=== PATIENT | female | born 1975 | race Caucasian/White ===

== ENCOUNTER 2024-07-02 17:42 | Emergency (ER) | payer OTHER, MEDICAID ==
[~2024-07-02] VITALS: Ht 157.5 cm; Wt 81.7 kg
[2024-07-02 18:32] LABS: KETONE, URINE AUTO RFX NEGATIVE (NEGATIVE); LEUKOCYTE ESTERASE UR AUTO RFX NEGATIVE (NEGATIVE); NITRITE, URINE AUTO RFX NEGATIVE (NEGATIVE); RBC, URINE AUTO RFX 0 /HPF (0-3); SQUAM EPITHELIAL CELL UR AURFX 1 /HPF (0-6); WBC, URINE AUTO RFX 0 /HPF (0-3)
[2024-07-02] MEDS: predniSONE 20 MG TAB PO ONE (23:37)
[2024-07-02] MEDS: IPRATROPIUM 0.5MG/ALBUTEROL 2.5MG INH SOL UD 3ML NEB PRN (23:56)
[2024-07-03] MEDS ORDERED: IPRA0.00 NEB (00:50)
[2024-07-03] MEDS ORDERED: PRED20TA PO (00:51)
[2024-07-03 01:00] VITALS: BP 130/59; TEMP 98; O2SAT 97
== END 2024-07-03 01:22 | disposition home or self-care (01) ==
LOC: M ED 17:42
DX: J44.1 Chronic obstructive pulmonary disease with (acute) exacerbation (principal); E11.9 Type 2 diabetes mellitus without complications; F17.200 Nicotine dependence, unspecified, uncomplicated; Z88.0 Allergy status to penicillin; Z88.2 Allergy status to sulfonamides; Z91.018 Allergy to other foods
CPT/HCPCS: 71045; 81001; 87486; 87581; 87633; 87798; 94640; 99283; J7512

== ENCOUNTER 2024-11-11 08:55 | Day surgery (SDC) | payer OTHER, MEDICAID ==
[~2024-11-11] VITALS: Ht 160 cm; Wt 72.4 kg
[~2024-11-11 08:55] MED LIST: ALBU8.5H INH; ARIP1TAB6 PO; ATOR1TAB19 PO; AZEL1SPR3 NARES; BUSP5TA PO; CYCL-707 PO; DULO1CAP6 PO; ECOT81TA5 PO; FLUO-365 PO; FLUT1BLS5 INH; GABA-1635 PO; GLIP-318 PO; HYDR-3363 PO; IMIT50TA PO; IPRA0.00 NEB; LEVOTAB10 PO; MONT10TA97 PO; OXYC10TA12 PO; OXYC20TA40 PO; PANT40TA29 PO; PRED20TA PO; SEMA0.257 SC
[2024-11-11] MEDS: LR 1,000 ML IV SCH (09:45)
[2024-11-11] MEDS: ALBUTEROL SULFATE 2.5 MG/0.5 ML INH CONCENTRATE NEB SOLN NEB ONE (09:45)
[2024-11-11] MEDS: ceFAZolin SOD 2 GM IV ONCE IV ONE (10:46)
[2024-11-11] MEDS: LIDOCAINE 1% MDV 20 ML VIAL As Ordered ONE (10:49)
[2024-11-11] MEDS ORDERED: ONDANSETRON 4MG 2ML VIAL As Ordered ONE (11:31)
[2024-11-11] MEDS ORDERED: ACETAMINOPHEN 1000MG/100ML IV BAG As Ordered ONE (11:31)
[2024-11-11] MEDS ORDERED: LR 1,000 ML IV SCH (11:40)
[2024-11-11] MEDS ORDERED: HYDROMORPHONE HCL 0.5 MG/0.5 ML SYRINGE IV PRN (11:40)
[2024-11-11 12:44] VITALS: BP 122/59; TEMP 97; O2SAT 94
== END 2024-11-11 13:20 | disposition home or self-care (01) ==
LOC: M SDC 08:55
PROVIDERS: ATTEND Podiatrist Foot & Ankle Surgery
DX: M20.11 Hallux valgus (acquired), right foot (principal); M21.611 Bunion of right foot; E11.9 Type 2 diabetes mellitus without complications; E78.00 Pure hypercholesterolemia, unspecified; K21.9 Gastro-esophageal reflux disease without esophagitis; J44.89 Other specified chronic obstructive pulmonary disease; Z79.899 Other long term (current) drug therapy; Z79.82 Long term (current) use of aspirin; Z88.0 Allergy status to penicillin; Z88.2 Allergy status to sulfonamides; Z91.048 Other nonmedicinal substance allergy status; Z91.040 Latex allergy status; Z91.018 Allergy to other foods; F17.210 Nicotine dependence, cigarettes, uncomplicated
CPT/HCPCS: 28297; 76000; 88300; C1713; J0131; J0665; J0690; J2405; J3010

== ENCOUNTER 2024-11-14 19:13 | Inpatient (IN) | payer OTHER, MEDICAID ==
[~2024-11-14] VITALS: Ht 160 cm; Wt 74.3 kg
[2024-11-14] MEDS ORDERED: VANCOMYCIN HCL 1,000 MG, VIAL MATE ADAPTER 1 EACH in NS 250 ML IV SCH (21:05)
[2024-11-14] MEDS: MORPHINE 10 MG/ML 1 ML VIAL IV ONE (21:33)
[2024-11-14] MEDS: NS (Normal Saline) 0.9% 1,000 ML IV ONE (21:34)
[2024-11-14 21:43] LABS: BASO # 0.0 10^3/uL (0.0-0.2); BASO % 0.2 % (0.0-1.0); EOS # 0.0 10^3/uL (0.0-0.5); EOS % 0.0 % (0.0-3.0); LYMPH # 1.6 10^3/uL (1.5-5.0); LYMPH % 18.7 % (24.0-44.0); MONO # 0.8 10^3/uL (0.0-0.8); MONO % 8.7 % (2.0-8.0); NEUTROPHILS # 6.2 10^3/uL (1.5-8.5); NEUTROPHILS % 71.8 % (36.0-66.0); PLATELET COUNT, AUTOMATED 333 10^3/uL (150-450)
[2024-11-14 21:55] LABS: INR 0.87
[2024-11-14 22:16] LABS: ALT/SGPT 18 U/L (7.0-40); AST/SGOT 19 U/L (<34); CALCIUM LEVEL 9.1 MG/DL (8.5-10.1); CARBON DIOXIDE LEVEL 28 MMOL/L (20-31); CHLORIDE LEVEL 108 MMOL/L (98-107); CREATININE FOR GFR 0.56 MG/DL (0.55-1.30); GLOMERULAR FILTRATION RATE > 90.0 (>51); POTASSIUM SERUM 4.0 MMOL/L (3.5-5.1); SODIUM LEVEL 144 MMOL/L (136-145)
[2024-11-14 22:21] LABS: CPK CREATINE PHOSPHOKINASE 212 U/L (34-145)
[2024-11-14] MEDS: CLINDAMYCIN 600 MG in IV 1 EA IV ONE (22:37)
[2024-11-14] MEDS ORDERED: ISOVUE-370 76% 100 ML VIAL As Ordered ONE (22:46)
[2024-11-15] MEDS: VANCOMYCIN HCL 2,000 MG, VIAL MATE ADAPTER 1 EACH in NS 500 ML IV ONE (00:28)
[2024-11-15 02:49] LABS: C REACTIVE PROTEIN QUANTITATIV 8.00 MG/DL (<1.0); ERYTHROCYTE SEDIMENTATION RATE 68 mm/hr (0-30)
[2024-11-15] MEDS ORDERED: GLUCOSE 4 GM CHEW PO PRN (04:25)
[2024-11-15] MEDS ORDERED: DEXTROSE 50% 50 ML SYRINGE IV PRN (04:25)
[2024-11-15] MEDS ORDERED: GLUCAGON INJ 1 MG VIAL SC PRN (04:25)
[2024-11-15] MEDS ORDERED: SENNA 8.6 MG TAB PO PRN (04:25)
[2024-11-15 04:45] VITALS: BP 127/78; TEMP 97.7; O2SAT 97
[2024-11-15] MEDS ORDERED: BUDE0.5S6 INH (04:45)
[2024-11-15] MEDS ORDERED: LIDO5CRE6 TOP (04:45)
[2024-11-15] MEDS ORDERED: OXYC1TAB23 PO (04:45)
[2024-11-15] MEDS ORDERED: FAMO40TA3 PO (04:45)
[2024-11-15] MEDS ORDERED: MYRB50TA PO (04:45)
[2024-11-15] MEDS ORDERED: CROM4SOL4 OU (04:45)
[2024-11-15 04:48] LABS: ESTIMATED AVERAGE GLUCOSE 128.0 MG/DL (60-110)
[2024-11-15] MEDS ORDERED: HOME MED LIST COMPLETE! XX SCH (04:50)
[2024-11-15] MEDS: cefTRIAXone SOD 1 GM in DEXTROSE 5% (D5W) ADV/MINI-BAG 50 ML IV SCH (06:20)
[2024-11-15] MEDS: INSULIN LISPRO (NovoLOG) PER UNIT SC SCH ×2 (07:30→20:21)
[2024-11-15 08:17] LABS: BASO # 0.0 10^3/uL (0.0-0.2); BASO % 0.2 % (0.0-1.0); EOS # 0.0 10^3/uL (0.0-0.5); EOS % 0.0 % (0.0-3.0); LYMPH # 1.3 10^3/uL (1.5-5.0); LYMPH % 14.7 % (24.0-44.0); MONO # 0.7 10^3/uL (0.0-0.8); MONO % 8.0 % (2.0-8.0); NEUTROPHILS # 6.9 10^3/uL (1.5-8.5); NEUTROPHILS % 76.8 % (36.0-66.0); PLATELET COUNT, AUTOMATED 355 10^3/uL (150-450)
[2024-11-15 08:24] LABS: ERYTHROCYTE SEDIMENTATION RATE 68 mm/hr (0-30)
[2024-11-15 08:45] LABS: C REACTIVE PROTEIN QUANTITATIV 6.12 MG/DL (<1.0); CALCIUM LEVEL 9.2 MG/DL (8.5-10.1); CARBON DIOXIDE LEVEL 29 MMOL/L (20-31); CHLORIDE LEVEL 109 MMOL/L (98-107); CREATININE FOR GFR 0.60 MG/DL (0.55-1.30); GLOMERULAR FILTRATION RATE > 90.0 (>51); POTASSIUM SERUM 4.4 MMOL/L (3.5-5.1); SODIUM LEVEL 146 MMOL/L (136-145)
[2024-11-15] MEDS: busPIRone 5 MG TAB PO SCH (10:11)
[2024-11-15] MEDS: PANTOPRAZOLE 40MG TAB PO SCH (10:11)
[2024-11-15] MEDS: ASPIRIN 81 MG ENTERIC TABLET PO SCH (10:11)
[2024-11-15] MEDS: FAMOTIDINE 20 MG TAB PO SCH (10:12)
[2024-11-15] MEDS: GABAPENTIN 400 MG CAP PO SCH (10:12)
[2024-11-15] MEDS: FLUoxetine 20 MG CAP PO SCH (10:12)
[2024-11-15] MEDS: VANCOMYCIN HCL 1,000 MG, VIAL MATE ADAPTER 1 EACH in NS 250 ML IV SCH (10:12)
[2024-11-15] MEDS: PERCOCET 5MG/325MG TAB PO PRN (10:20)
[2024-11-15 14:00] VITALS: BP 140/89; TEMP 97.3; O2SAT 96
[2024-11-15] MEDS: IPRATROPIUM 0.5 MG/ALBUTEROL 2.5 MG INH SOL UD 3 ML NEB PRN (16:51)
[2024-11-15] MEDS ORDERED: CEPACOL LOZENGE PO PRN (17:30)
[2024-11-15] MEDS: ADVAIR HFA 230/21 MCG INHALER INH SCH (19:13)
[2024-11-15] MEDS: BUDESONIDE 0.5 MG/2 ML INHALATION SUSPENSION INH SCH (19:13)
[2024-11-15 19:52] VITALS: BP 126/73; TEMP 97.5; O2SAT 96
[2024-11-15] MEDS: NICOTINE 21 MG/24 HR 1 EA TRANSDERMAL TD SCH (20:30)
[2024-11-15] MEDS: CYCLOBENZAPRINE 10 MG TABLET PO SCH (20:32)
[2024-11-15] MEDS: MONTELUKAST 10 MG TAB PO SCH (20:32)
[2024-11-16] MEDS: PERCOCET 5MG/325MG TAB PO PRN (01:12)
[2024-11-16 06:00] VITALS: BP 129/75; TEMP 97.5; O2SAT 99
[2024-11-16 07:20] LABS: BASO # 0.0 10^3/uL (0.0-0.2); BASO % 0.3 % (0.0-1.0); EOS # 0.0 10^3/uL (0.0-0.5); EOS % 0.0 % (0.0-3.0); LYMPH # 1.7 10^3/uL (1.5-5.0); LYMPH % 26.0 % (24.0-44.0); MONO # 0.6 10^3/uL (0.0-0.8); MONO % 10.1 % (2.0-8.0); NEUTROPHILS # 4.0 10^3/uL (1.5-8.5); NEUTROPHILS % 63.3 % (36.0-66.0); PLATELET COUNT, AUTOMATED 317 10^3/uL (150-450)
[2024-11-16 08:08] LABS: CALCIUM LEVEL 8.9 MG/DL (8.5-10.1); CARBON DIOXIDE LEVEL 27 MMOL/L (20-31); CHLORIDE LEVEL 111 MMOL/L (98-107); CREATININE FOR GFR 0.61 MG/DL (0.55-1.30); GLOMERULAR FILTRATION RATE > 90.0 (>51); POTASSIUM SERUM 3.4 MMOL/L (3.5-5.1); SODIUM LEVEL 145 MMOL/L (136-145)
[2024-11-16 14:00] VITALS: BP 121/81; TEMP 97.5; O2SAT 98
[2024-11-16 20:00] VITALS: BP 130/81; TEMP 97.7; O2SAT 96
[2024-11-17 04:00] VITALS: BP 128/82; TEMP 97.7; O2SAT 96
[2024-11-17 07:29] LABS: BASO # 0.0 10^3/uL (0.0-0.2); BASO % 0.5 % (0.0-1.0); EOS # 0.0 10^3/uL (0.0-0.5); EOS % 0.0 % (0.0-3.0); LYMPH # 1.9 10^3/uL (1.5-5.0); LYMPH % 29.5 % (24.0-44.0); MONO # 0.6 10^3/uL (0.0-0.8); MONO % 8.9 % (2.0-8.0); NEUTROPHILS # 4.0 10^3/uL (1.5-8.5); NEUTROPHILS % 60.8 % (36.0-66.0); PLATELET COUNT, AUTOMATED 373 10^3/uL (150-450)
[2024-11-17 07:51] LABS: CALCIUM LEVEL 8.7 MG/DL (8.5-10.1); CARBON DIOXIDE LEVEL 25 MMOL/L (20-31); CHLORIDE LEVEL 112 MMOL/L (98-107); CREATININE FOR GFR 0.61 MG/DL (0.55-1.30); GLOMERULAR FILTRATION RATE > 90.0 (>51); POTASSIUM SERUM 3.6 MMOL/L (3.5-5.1); SODIUM LEVEL 147 MMOL/L (136-145)
[2024-11-17 08:55] LABS: C REACTIVE PROTEIN QUANTITATIV 1.37 MG/DL (<1.0)
[2024-11-17] MEDS ORDERED: CEPH500C PO (10:37)
[2024-11-17 12:10] VITALS: BP 128/82; TEMP 97.7
== END 2024-11-17 12:19 | disposition home or self-care (01) | DRG 920 ==
LOC: M ED 19:13 → M ED INP 11-15 02:34 → M MS5PR 11-15 04:35
PROVIDERS: ADMIT Student in an Organized Health Care Education/Training Program; ATTEND Family Medicine
DX: M96.89 Other intraoperative and postprocedural complications and disorders of the musculoskeletal system (principal); L03.115 Cellulitis of right lower limb; E11.40 Type 2 diabetes mellitus with diabetic neuropathy, unspecified; J45.909 Unspecified asthma, uncomplicated; F41.9 Anxiety disorder, unspecified; F32.A Depression, unspecified; K21.9 Gastro-esophageal reflux disease without esophagitis; E78.5 Hyperlipidemia, unspecified; G89.29 Other chronic pain; Z79.82 Long term (current) use of aspirin; Z79.891 Long term (current) use of opiate analgesic; Z79.52 Long term (current) use of systemic steroids; Z79.899 Other long term (current) drug therapy; Z88.0 Allergy status to penicillin; Z88.2 Allergy status to sulfonamides; Z91.018 Allergy to other foods; Z91.040 Latex allergy status; Z91.048 Other nonmedicinal substance allergy status

== ENCOUNTER 2024-11-26 14:48 | Day surgery (SDC) | payer OTHER, MEDICAID ==
[~2024-11-26] VITALS: Ht 160 cm; Wt 74.4 kg
[~2024-11-26 14:48] MED LIST changes: +BUDE0.5S6 INH; +CEPH500C PO; +CROM4SOL4 OU; +FAMO40TA3 PO; +LIDO5CRE6 TOP; +MYRB50TA PO; +OXYC1TAB23 PO
[2024-11-26] MEDS ORDERED: ONDANSETRON 4MG 2ML VIAL As Ordered ONE (15:33)
[2024-11-26] MEDS ORDERED: MIDAZOLAM INJ 2 MG/2 ML VIAL As Ordered ONE (15:33)
[2024-11-26] MEDS ORDERED: ACETAMINOPHEN 1000MG/100ML IV BAG As Ordered ONE (15:34)
[2024-11-26] MEDS ORDERED: LIDOCAINE 2% 100 MG/5 ML SDV (FOR ANES.) As Ordered ONE (15:34)
[2024-11-26] MEDS ORDERED: KETOROLAC 30 MG/ML 1 ML VIAL As Ordered ONE (15:58)
[2024-11-26] MEDS ORDERED: ROCURONIUM BROMIDE 50MG/5ML VIAL As Ordered ONE (15:58)
[2024-11-26] MEDS ORDERED: dexAMETHasone 4 MG/ML 1 ML VIAL As Ordered ONE (15:58)
[2024-11-26] MEDS: LIDOCAINE 1% SDV 30 ML VIAL As Ordered ONE (16:25)
[2024-11-26] MEDS ORDERED: PHENYLEPHRINE 10MG/ML 1ML VIAL As Ordered ONE (16:48)
[2024-11-26] MEDS ORDERED: SUGAMMADEX SODIUM 200 MG/2 ML VIAL As Ordered ONE (17:44)
[2024-11-26] MEDS ORDERED: ONDANSETRON 4MG 2ML VIAL IV PRN (18:15)
[2024-11-26] MEDS ORDERED: MORPHINE 4 MG/ML 1 ML VIAL IV PRN (18:15)
[2024-11-26] MEDS ORDERED: ESMOLOL 100 MG/10 ML VIAL As Ordered ONE (18:28)
[2024-11-26] MEDS: LEVALBUTEROL 1.25 MG 0.5ML CONCENTRATE NEB NEB ONE (19:02)
[2024-11-26 19:33] VITALS: BP 114/63; TEMP 98.2; O2SAT 98
== END 2024-11-26 19:34 | disposition home or self-care (01) ==
LOC: M SDC 14:48
PROVIDERS: ATTEND Podiatrist Foot & Ankle Surgery
DX: S96.811A Strain of other specified muscles and tendons at ankle and foot level, right foot, initial encounter (principal); E11.9 Type 2 diabetes mellitus without complications; J44.89 Other specified chronic obstructive pulmonary disease; F17.210 Nicotine dependence, cigarettes, uncomplicated; Z79.85 Long-term (current) use of injectable non-insulin antidiabetic drugs; Z79.899 Other long term (current) drug therapy; Z79.84 Long term (current) use of oral hypoglycemic drugs; Z79.82 Long term (current) use of aspirin; Y93.01 Activity, walking, marching and hiking; Y92.9 Unspecified place or not applicable; Z88.2 Allergy status to sulfonamides; Z91.048 Other nonmedicinal substance allergy status; Z91.040 Latex allergy status
CPT/HCPCS: 28208; 93005; C1713; J0131; J0665; J0690; J1100; J1805; J1885; J2250; J2371; J2405; J3010